=== PATIENT | female | born 1945 | race Caucasian/White ===

== ENCOUNTER 2016-10-15 12:45 | Emergency (ER) | payer MEDICARE ==
[~2016-10-15] VITALS: Ht 160 cm; Wt 58.0 kg
[~2016-10-15 12:45] MED LIST: ADVAIR DISK1; ALBUTEROL SUL0.083 % IN; GLUCOSAMINE500 M1 PO; HYDROCHLOROT25 MG PO; MEDDOSEPAK PO; MULTIVITAMI1 PO; NASONEX50 MCG/ACT; NEBULIZE2; PROAIR HFA; TIMOLOL 0.25%5 ML OU; XALATAN0.005 % OU; ZESTRIL5 M1 PO; ZITHROMAX250 MG PO; ZOCOR20 M1 PO
[2016-10-15] MEDS ORDERED: PYRIDIUM200 MG PO (13:14)
[2016-10-15] MEDS ORDERED: KEFLEX500 MG PO (13:14)
[2016-10-15 13:51] VITALS: BP 136/92
[2016-10-15 14:04] LABS: URINE BILIRUBIN - DIPSTICK NEGATIVE (NEGATIVE); URINE BLOOD DIPSTICK TRACE-LYSED (NEGATIVE); URINE CLARITY CLEAR; URINE COLOR YELLOW; URINE GLUCOSE - DIPSTICK NEGATIVE (NEGATIVE); URINE KETONE NEGATIVE (NEGATIVE); URINE LEUK ESTERASE NEGATIVE (NEGATIVE); URINE NITRITE - DIPSTICK NEGATIVE (Negative); URINE PH 6.5 (4.5-8.0); URINE PROTEIN - DIPSTICK NEGATIVE (NEG-TRACE); URINE SPECIFIC GRAVITY <=1.005; URINE UROBILINOGEN - DIPSTICK 0.2 E.U./dL (0.2)
== END 2016-10-15 13:54 | disposition home or self-care (01) ==
LOC: ED 12:45
PROVIDERS: Emergency Medicine
DX: N39.0 Urinary tract infection, site not specified (principal); E78.00 Pure hypercholesterolemia, unspecified; J45.909 Unspecified asthma, uncomplicated

== ENCOUNTER → 2018-04-18 | Outpatient (REF) | payer MEDICARE ==
[~2018-04-18] MED LIST changes: +KEFLEX500 MG PO; +PYRIDIUM200 MG PO
[2018-04-18 11:55] LABS: ALBUMIN 4.2 g/dL (3.2-5.0); ALKALINE PHOSPHATASE 77 u/l (38-126); ANION GAP 14 (6-22 (CALC)); BILIRUBIN, TOTAL 0.6 mg/dL (0.0-1.4); BUN 15 mg/dL (8-23); BUN/CREATININE RATIO 28 (12-20 (CALC)); CALCULATED LDLCHOLESTEROL 193 mg/dL (62-129 (CALC)); CARBON DIOXIDE 27 mmol/l (22-30); CHLORIDE 102 mmol/l (95-108); CHOLESTEROL HDL RATIO 3.9 (<4.4 (CALC)); CREATININE 0.5 mg/dL (0.5-1.0); GFR > 60 ML/MIN (>=60 (CALC)); GFR FOR AFR.AMER. > 60 ML/MIN (>=60 (CALC)); HDL CHOLESTEROL 76 mg/dL (>=40); POTASSIUM 4.4 mmol/l (3.5-5.1); SGOT/AST 26 u/l (9-36); SODIUM 139 mmol/l (137-146); TOTAL TRIGLYCERIDES 146 mg/dl (30-149); VLDL CHOLESTROL 29 mg/dl (0-48 (CALC))
[2018-04-18 11:58] LABS: TOTAL CHOLESTEROL 298 mg/dl (0-199)
== END | disposition home or self-care (01) ==
LOC: LAB 08:41
PROVIDERS: ATTEND Internal Medicine Geriatric Medicine
DX: E78.2 Mixed hyperlipidemia (principal)